=== PATIENT | female | born 1950 | race Caucasian/White ===

== ENCOUNTER 2020-06-13 05:29 | Inpatient (IN) | payer MEDICARE ==
[2020-06-04 11:14] LABS: CLARITY,URINE CLEAR (Clear); COLOR,URINE STRAW (Yellow); GLUCOSE, URINE NEGATIVE (Neg); KETONES,URINE NEGATIVE (Neg); LEUKOCYTE ESTERASE ,URINE NEGATIVE (Neg); NITRITES, URINE NEGATIVE (Neg); OCCULT BLOOD,URINE TRACE-LYSED (Neg); PROTEIN,URINE NEGATIVE (Neg); UROBILINOGEN,URINE 0.2 E.U/dL (0.2-1.0)
[2020-06-04 11:17] LABS: BASOPHILS % (AUTO) 0.9 % (0-1); EOSINOPHILS # (AUTO) 0.1 X10'3 (0-0.9); EOSINOPHILS % (AUTO) 2.3 % (0-6); LYMPHOCYTES # (AUTO) 0.7 X10'3 (1.1-4.8); LYMPHOCYTES % (AUTO) 12.9 % (21-51); MEAN CORPUSCULAR HEMOGLOBIN 33.7 PG (27.0-31.0); MEAN CORPUSCULAR HGB CONC 33.5 g/dL (33.0-36.5); MEAN CORPUSCULAR VOLUME 100.7 FL (78-98); MEAN PLATELET VOLUME 7.5 FL (7.4-10.4); MONOCYTES # (AUTO) 0.4 X10'3 (0-0.9); MONOCYTES % (AUTO) 8.7 % (2-12); NEUTROPHILS # (AUTO) 3.9 X10'3 (1.8-7.7); NEUTROPHILS % (AUTO) 75.2 % (42-75); PRE OP HEMATOCRIT 39.7 % (35.0-45.0); PRE OP HEMOGLOBIN 13.3 g/dL (12.0-16.0); PRE OP PLATELET COUNT 250 X10'3 (140-440); RED BLOOD COUNT 3.94 X10'6 (4.20-5.60); RED CELL DISTRIBUTION WIDTH 13.2 % (11.5-14.5)
[2020-06-04 11:18] LABS: UA COLLECTION TYPE NON-SPECIFIED
[2020-06-04 11:19] LABS: SQUAMOUS EPITHELIAL CELL,UR MODERATE /LPF (FEW)
[2020-06-04 11:21] LABS: BACTERIA,URINE FEW /HPF (Neg); RBC,URINE 0-2 /HPF (0-2); STARCH,URINE FEW /HPF (NEGATIVE); WBC,URINE 0-4 /HPF (0-4)
[2020-06-04 11:27] LABS: PRE OP INR 0.9 INR; PRE OP PROTIME 9.7 SECONDS (9.0-12.0)
[2020-06-04 11:39] LABS: ALBUMIN 3.9 G/DL (3.4-5.0); ALBUMIN/GLOBULIN RATIO 1.3 (1.1-1.5); ALKALINE PHOSPHATASE 70 IU/L (46-116); BLOOD UREA NITROGEN 36 MG/DL (7-18); BUN/CREATININE RATIO 16.7 (6.6-38.0); CALCIUM 9.1 MG/DL (8.5-10.1); CHLORIDE 105 MMOL/L (99-107); CREATININE 2.16 MG/DL (0.40-0.90); PRE OP ALT 25 U/L (30-65); PRE OP ANION GAP 8 (8-16); PRE OP AST 19 U/L (10-37); PRE OP BILIRUB, TOTAL 0.3 MG/DL (0.0-1.0); PRE OP GLUCOSE 93 MG/DL (70-104); PRE OP POTASSIUM 4.3 MMOL/L (3.4-5.1); PRE OP SODIUM 140 MMOL/L (135-145); TOTAL CARBON DIOXIDE 27.1 MMOL/L (24-32); eGFR 22 ML/MIN
[~2020-06-13] VITALS: Ht 172.7 cm; Wt 105.7 kg
[2020-06-13] VITALS (17 sets, daily range): BP systolic 105–154; BP diastolic 46–65
[~2020-06-13 05:29] MED LIST: AMLO5TAB16 PO; DULO40CA2 PO; GABA300C PO; LEVO100T9 PO; LISI-600 PO; MULT-1141 PO; PANT40TA54 PO; ringers solution, lacted 1,000 ML IV SCH
[2020-06-13] MEDS ORDERED: vancomycin 1,500 MG in NS 300ml IV soln IV ONE (05:30)
[2020-06-13] MEDS ORDERED: cefazolin/dext.iso 2gm/50ml 50 ML IV ONE (05:30)
[2020-06-13] MEDS ORDERED: famotidine 20mg tablet PO ONE (05:30)
[2020-06-13] MEDS ORDERED: ondansetron/PF 4mg/2ml inj ONE ×2 (06:33→09:27)
[2020-06-13] MEDS ORDERED: MIDAZolam 5mg/5ml vial ONE (06:43)
[2020-06-13] MEDS ORDERED: fentaNYL/PF 50MCG/1 ML 2ML syringe ONE (06:43)
[2020-06-13] MEDS ORDERED: sevoflurane 250ml liquid IH ONE (07:10)
[2020-06-13] MEDS ORDERED: fentaNYL /PF 50mcg/ml 5ml ampule ONE (08:50)
[2020-06-13] MEDS ORDERED: ringers solution, lacted 1,000 ML IV SCH (09:13)
[2020-06-13] MEDS ORDERED: HYDROmorphone inj. 0.5 MG/0.5 ML DISP.SYRIN IV PRN ×2 (09:15)
[2020-06-13] MEDS ORDERED: ondansetron/PF 4mg/2ml inj IV PRN ×2 (09:15→10:00)
[2020-06-13] MEDS ORDERED: fentaNYL/PF 50MCG/1 ML 2ML syringe IV PRN ×2 (09:15)
[2020-06-13] MEDS ORDERED: neostigmine methylsulfate 1 MG/ML 10ml vial ONE (09:27)
[2020-06-13] MEDS ORDERED: rocuronium 10mg/ml inj IV ONE (09:27)
[2020-06-13] MEDS ORDERED: dexamethasone sod phosphate 4mg/ml inj. ONE (09:27)
[2020-06-13] MEDS ORDERED: propofol inj 20 ML IV ONE (09:27)
[2020-06-13] MEDS ORDERED: LIDOcaine 2% (20mg/ml) 5ml vial ONE (09:27)
[2020-06-13] MEDS ORDERED: glycopyrrolate 0.2mg/ml inj ONE (09:27)
[2020-06-13] MEDS ORDERED: ROPIVAcaine 0.5% (5mg/ml) 30ml vial ONE (09:27)
[2020-06-13] MEDS ORDERED: ePHEDrine 50MG/ML INJ. ONE (09:27)
[2020-06-13] MEDS ORDERED: bacitracin 15gm ointment TP ONE ×2 (09:33→09:35)
[2020-06-13] MEDS ORDERED: bisacodyl 10mg suppository rectal RC PRN (10:00)
[2020-06-13] MEDS ORDERED: acetaminophen 325mg tablet PO PRN (10:00)
[2020-06-13] MEDS ORDERED: diphenhydrAMINE 25mg capsule PO PRN ×2 (10:00)
[2020-06-13] MEDS ORDERED: oxyCODONE/APAP 10/325mg tablet PO PRN ×2 (10:00)
[2020-06-13] MEDS ORDERED: magnesium hydroxide 30ml (MOM) UD suspension PO PRN (10:00)
--- NOTE | 2020-06-13 10:10 | NUR ---
Received from OR via ORTHO BED WITH SHAKIR , accompanied by Anesthesiologist RYAN and report given by Anesthesiolgist. PATIENT WITH SPLINT TO RIGHT LE, GATCHED FOOT OF BED AND ELEVATED FOOT OF BED. + CAP REFILL AND DENIES SENSATION AT THIS TIME 2' NERVE BLOCK. VSS. 10L MASK ON WITH 98% SATURATIONS. 20G PIV IN RIGHT UE RUNNING LR AT 100. Addendum: 06/13/20 at 1025 by Mike Martinez RN, RN Amended: Links added.
--- NOTE | 2020-06-13 11:00 | NUR ---
Report called to receiving nurse. Transferred via ORTHO BED WITH OHFT WITH ONE BAG OF Belongings AND GLASSES IN A LABELED CASE . Special Issues communicated to receiving nurse AUGUSTA LINTON.PATIENT WITH FOOT OF BED GATCHED, PATIENT WITH NO CO.PAIN AT THIS TIME. Addendum: 06/13/20 at 1106 by Mike Martinez RN, RN Amended: Links added.
[2020-06-13] MEDS: amLODIPine 5mg tablet PO SCH (11:40)
[2020-06-13] MEDS: potassium cl 20mEq in 1/2 NS 1,000 ML IV SCH ×2 (11:42→19:43)
--- NOTE | 2020-06-13 15:18 | NUR ---
Patient ready for discharge. Diabetic survival kit reviewed. All belongings gathered and sent with patient. Prescription e scripted to pharmacy. PIV removed, cannula intact. Labs were faxed to designated places she requested and medical release form was filled out. Addendum: 06/13/20 at 1520 by Esther Roberts RN Wrong patient
[2020-06-13] MEDS: gabapentin 300mg capsule PO SCH (16:30)
[2020-06-13] MEDS: ceFAZolin/D5W- 1GM premix 50 ML IV SCH (16:30)
--- NOTE | 2020-06-13 18:16 | NUR ---
Problems reprioritized. Patient report given, questions answered & plan of care reviewed with Amelia LINTON.
--- NOTE | 2020-06-13 18:19 | NUR ---
Patient in room ORTHO 4024. I have received report from Esther LINTON and had the opportunity to ask questions and assume patient care.
[2020-06-13] MEDS: duloxetine 20mg capsule.DR PO SCH (19:43)
[2020-06-13] MEDS: pantoprazole 40mg Tablet.DR PO SCH (19:44)
[2020-06-13] MEDS: lisinopril 20mg tablet PO SCH (19:46)
[2020-06-13] MEDS ORDERED: vancomycin/NS 1 GM ADD-VANTAGE 250 ML IV SCH (20:00)
[2020-06-13] MEDS: sennosides 8.6mg tablet PO SCH (20:16)
[2020-06-14] MEDS: gabapentin 300mg capsule PO SCH ×4 (00:35→23:42)
[2020-06-14] MEDS: ceFAZolin/D5W- 1GM premix 50 ML IV SCH (00:35)
[2020-06-14] MEDS: potassium cl 20mEq in 1/2 NS 1,000 ML IV SCH ×3 (01:56→17:56)
[2020-06-14 02:00] VITALS: BP 128/50
[2020-06-14 06:00] VITALS: BP 133/45
--- NOTE | 2020-06-14 06:25 | NUR ---
Problems reprioritized. Patient report given, questions answered & plan of care reviewed with Delmy LINTON.
[2020-06-14] MEDS: duloxetine 20mg capsule.DR PO SCH ×2 (07:52→19:19)
[2020-06-14] MEDS: levoTHYROXINE 100mcg tablet PO SCH (07:52)
[2020-06-14] MEDS: multivitamins, therapeutics tablet PO SCH (07:52)
[2020-06-14] MEDS: aspirin 325mg tablet PO SCH (07:54)
[2020-06-14] MEDS: pantoprazole 40mg Tablet.DR PO SCH ×2 (07:54→19:19)
[2020-06-14] MEDS: amLODIPine 5mg tablet PO SCH (07:55)
[2020-06-14] MEDS: lisinopril 20mg tablet PO SCH ×2 (07:55→19:19)
[2020-06-14 09:59] VITALS: BP 121/47
[2020-06-14 14:00] VITALS: BP 133/50
[2020-06-14] MEDS: oxyCODONE/APAP 10/325mg tablet PO PRN ×2 (14:12→22:33)
[2020-06-14 18:00] VITALS: BP 127/56
[2020-06-14] MEDS: sennosides 8.6mg tablet PO SCH (20:30)
[2020-06-14 22:00] VITALS: BP 124/43
[2020-06-15] VITALS (7 sets, daily range): BP systolic 86–131; BP diastolic 41–58
[2020-06-15] MEDS: oxyCODONE/APAP 10/325mg tablet PO PRN ×2 (04:30→09:27)
--- NOTE | 2020-06-15 06:19 | NUR ---
Problems reprioritized. Patient report given, questions answered & plan of care reviewed with ROYER Chauhan.
--- NOTE | 2020-06-15 06:28 | NUR ---
Patient in room ORTHO 4024A. I have received report from ROYER Stone and had the opportunity to ask questions and assume patient care.
[2020-06-15] MEDS: amLODIPine 5mg tablet PO SCH (08:00)
[2020-06-15] MEDS: lisinopril 20mg tablet PO SCH ×2 (08:00→20:20)
[2020-06-15] MEDS: duloxetine 20mg capsule.DR PO SCH ×2 (08:01→20:19)
[2020-06-15] MEDS: pantoprazole 40mg Tablet.DR PO SCH ×2 (08:02→20:18)
[2020-06-15] MEDS: gabapentin 300mg capsule PO SCH ×3 (08:02→23:45)
[2020-06-15] MEDS: levoTHYROXINE 100mcg tablet PO SCH (08:02)
[2020-06-15] MEDS: aspirin 325mg tablet PO SCH (08:03)
[2020-06-15] MEDS: multivitamins, therapeutics tablet PO SCH (08:03)
--- NOTE | 2020-06-15 18:27 | NUR ---
Problems reprioritized. Patient report given, questions answered & plan of care reviewed with ROYER Fernandez.
[2020-06-15] MEDS: sennosides 8.6mg tablet PO SCH (20:18)
[2020-06-16] MEDS: oxyCODONE/APAP 10/325mg tablet PO PRN ×2 (05:12→11:59)
[2020-06-16 06:00] VITALS: BP 119/44
--- NOTE | 2020-06-16 06:27 | NUR ---
Problems reprioritized. Patient report given, questions answered & plan of care reviewed with ROYER NAGY.
--- NOTE | 2020-06-16 06:53 | NUR ---
Patient in room ORTHO 4024A. I have received report from ROYER Fernandez and had the opportunity to ask questions and assume patient care.
[2020-06-16] MEDS: gabapentin 300mg capsule PO SCH ×2 (09:06→16:21)
[2020-06-16] MEDS: duloxetine 20mg capsule.DR PO SCH (09:06)
[2020-06-16] MEDS: multivitamins, therapeutics tablet PO SCH (09:07)
[2020-06-16] MEDS: aspirin 325mg tablet PO SCH (09:07)
[2020-06-16] MEDS: levoTHYROXINE 100mcg tablet PO SCH (09:09)
[2020-06-16] MEDS: lisinopril 20mg tablet PO SCH (09:09)
[2020-06-16] MEDS: amLODIPine 5mg tablet PO SCH (09:09)
[2020-06-16] MEDS: pantoprazole 40mg Tablet.DR PO SCH (09:09)
[2020-06-16 10:00] VITALS: BP 101/52
--- NOTE | 2020-06-16 11:00 | NUR ---
CALLED DR VARELA AND ADVISED THAT PT WANTS TO GO TO [facility] INSTEAD OF HOME
--- NOTE | 2020-06-16 17:45 | NUR ---
Report called to Nubia at [facility]. iv removed, canula intact. transferred pt to wheelchair. [facility] personnel took pt to [facility] in stable condition.
== END 2020-06-16 17:45 | DRG 469 ==
LOC: PAS 05:29 → EDSTATUS 07:30 → ORTHO 4S 09:56 → PAS 09:56 → ORTHO 4S 09:56
PROVIDERS: ADMIT Podiatrist Foot & Ankle Surgery; ATTEND Podiatrist Foot & Ankle Surgery
PROC: 0SPF0JZ Removal of Synthetic Substitute from Right Ankle Joint, Open Approach (ICD-10-PCS; 2020-06-13)
PROC: 0SRF0JZ Replacement of Right Ankle Joint with Synthetic Substitute, Open Approach (ICD-10-PCS; principal; 2020-06-13 07:10)
DX: T84.84XA Pain due to internal orthopedic prosthetic devices, implants and grafts, initial encounter (principal); M19.071 Primary osteoarthritis, right ankle and foot; M20.11 Hallux valgus (acquired), right foot; Y83.1 Surgical operation with implant of artificial internal device as the cause of abnormal reaction of the patient, or of later complication, without mention of misadventure at the time of the procedure; M21.41 Flat foot [pes planus] (acquired), right foot; K21.9 Gastro-esophageal reflux disease without esophagitis; I10 Essential (primary) hypertension; F32.9 Major depressive disorder, single episode, unspecified; E03.9 Hypothyroidism, unspecified
CPT/HCPCS: 36415; 73610; 76000; 80053; 81001; 82948; 84443; 85025; 85610; 85730; 87081; 87635; 93005; 97110; 97116; 97161; 97530; 97535; A4618; A6223; A6449; A7000; C1776; G0378; J0690; J1100; J2001; J2250; J2405; J2704; J2710; J2795; J3010; J3370; J3480; J3490; J7040; J7120